=== PATIENT | female | born 1985 | race Caucasian/White ===

== ENCOUNTER 2021-07-23 16:51 | Emergency (ER) | payer OTHER ==
[2021-07-23 19:15] LABS: HEMOGLOBIN 13.5 gm/dl (12.3-15.3); RED BLOOD COUNT 4.38 M/UL (4.00-5.10); WHITE BLOOD COUNT 7.3 K/UL (4.5-11.0)
[2021-07-23 19:31] LABS: BUN/CREATININE RATIO 26 (0-10)
[2021-07-23] MEDS ORDERED: IBUPROFEN600 MG PO (19:53)
== END 2021-07-23 20:04 | disposition home or self-care (01) ==
LOC: ER1 16:51
PROVIDERS: Nurse Practitioner
DX: R10.9 Unspecified abdominal pain (principal); F17.290 Nicotine dependence, other tobacco product, uncomplicated
CPT/HCPCS: 80053; 81001; 84703; 85025; 99284